=== PATIENT | male | born 1990 | race Caucasian/White ===

== ENCOUNTER 2024-04-22 11:27 | Emergency (ER) | payer MEDICAID ==
[~2024-04-22] VITALS: Ht 180.3 cm; Wt 91.0 kg
[2024-04-22 11:44] VITALS: TEMP 36.8; O2SAT 98
[2024-04-22] MEDS ORDERED: CHLO3800 TP (14:13)
[2024-04-22] MEDS ORDERED: AMOX1TAB16 MT (14:13)
[2024-04-22] MEDS ORDERED: IBUP-2029 MT (14:14)
[2024-04-22 14:20] VITALS: BP 135/60; PULSE 66; RESP 16
[2024-04-22] MEDS: IBUPROFEN 600MG TABLET PO ONE (14:20)
== END 2024-04-22 15:04 | disposition home or self-care (01) ==
LOC: ER 11:43
DX: K04.7 Periapical abscess without sinus (principal); Z98.890 Other specified postprocedural states
CPT/HCPCS: 99283